=== PATIENT | female | born 2000 | race Caucasian/White ===

== ENCOUNTER → 2023-11-09 | Emergency (ER) | payer OTHER ==
[~2023-11-09] VITALS: Ht 152.4 cm; Wt 47.6 kg
[2023-11-09 19:18] VITALS: BP 125/71; TEMP 98.1; O2SAT 100
== END | disposition home or self-care (01) ==
LOC: ER 17:32
DX: S00.83XA Contusion of other part of head, initial encounter (principal); Z60.2 Problems related to living alone; W18.39XA Other fall on same level, initial encounter; Y93.89 Activity, other specified; Y92.89 Other specified places as the place of occurrence of the external cause; Y99.8 Other external cause status
CPT/HCPCS: 70450-TC; 70486-TC

== ENCOUNTER 2025-03-02 16:50 | Emergency (ER) | payer OTHER ==
[~2025-03-02] VITALS: Ht 149.9 cm; Wt 45.4 kg
[2025-03-02 17:04] VITALS: BP 94/60; TEMP 98.3
[2025-03-02] MEDS ORDERED: ACETAMINOPHEN ES 500 MG TABLET ONE (17:27)
[2025-03-02] MEDS ORDERED: ONDANSETRON 4 MG TAB.RAPDIS ONE (17:28)
[2025-03-02] MEDS: ACETAMINOPHEN ES 500 MG TABLET PO ONE (17:31)
[2025-03-02] MEDS: ONDANSETRON 4 MG TAB.RAPDIS SL ONE (17:31)
[2025-03-02 17:33] VITALS: O2SAT 98
== END 2025-03-02 17:34 | disposition home or self-care (01) ==
LOC: ER 16:58
DX: S00.93XA Contusion of unspecified part of head, initial encounter (principal); R11.0 Nausea; Z60.2 Problems related to living alone; W22.8XXA Striking against or struck by other objects, initial encounter; Y93.89 Activity, other specified; Y92.89 Other specified places as the place of occurrence of the external cause; Y99.8 Other external cause status
CPT/HCPCS: 99283; Q0162